=== PATIENT | male | born 1945 | race Hispanic/Latino ===

== ENCOUNTER 2017-07-04 09:18 | Day surgery (SDC) | payer MEDICARE ==
[2017-07-04] MEDS ORDERED: NACL 0.9% 1000 ML 1,000 ML ONE (10:22)
[2017-07-04] MEDS ORDERED: ANCEF/STERILE WATER 2 GM/20 ML IV NR (10:30)
[2017-07-04 10:35] LABS: Basophils % (Auto) 0.6 % (0.0-1.8); Eosinophils % (Auto) 2.6 % (0.0-4.3); Hematocrit 45.7 % (35.5-45.6); Hemoglobin 15.5 gm/dl (11.8-15.2); Mean Corpuscular HGB Conc 34 % (32-34); Mean Corpuscular Hemoglobin 32 pg (28-32); Mean Corpuscular Volume 94 fl (84-94); Platelet Count 137 K/mm3 (140-440); Red Blood Count 4.85 M/mm3 (3.65-5.03); Red Cell Distribution Width 13.1 % (13.2-15.2); White Blood Count 4.6 K/mm3 (4.5-11.0)
[2017-07-04] MEDS ORDERED: NACL 0.9% 1000 ML 1,000 ML IV SCH (10:35)
[2017-07-04 10:44] LABS: INR 0.93 (0.87-1.13)
[2017-07-04 10:55] LABS: Anion Gap 19 mmol/L; BUN/Creatinine Ratio 30; Blood Urea Nitrogen 18 mg/dL (9-20); Calcium 9.1 mg/dL (8.4-10.2); Carbon Dioxide 25 mmol/L (22-30); Chloride 100.7 mmol/L (98-107); Glucose 165 mg/dL (75-100); Sodium 141 mmol/L (137-145)
[2017-07-04] MEDS ORDERED: XYLOCAINE 1% 20 mL ONE (11:09)
[2017-07-04] MEDS ORDERED: MARCAINE 0.5% 30 ML INFILTRATI ONE (11:09)
--- NOTE | 2017-07-04 11:29 | Anesthesia Consultation ---
Anesthesia Consult and Med Hx Date of service: 07/04/17 - Airway Anesthetic Teeth Evaluation: Edentulous ROM Head & Neck: Adequate Mental/Hyoid Distance: Adequate Mallampati Class: Class II Intubation Access Assessment: Probably Good - Pulmonary Exam CTA: Yes - Cardiac Exam Cardiac Exam: RRR - Pre-Operative Health Status ASA Pre-Surgery Classification: ASA3 Proposed Anesthetic Plan: General - Pulmonary Hx Smoking: Yes (quit 03/22/14 - 2PPD x 44 years) Hx Sleep Apnea: Yes (has CPAP at home but doesn't use) - Cardiovascular System Hx Hypertension: Yes (20y) Hx Coronary Artery Disease: Yes (high cholesterol) Hx Peripheral Vascular Disease: Yes (L lower extremity 2 stents) - Central Nervous System Hx Back Pain: Yes Hx Psychiatric Problems: No - Endocrine Hx Insulin Dependent Diabetes: Yes - Other Systems Hx Alcohol Use: No Hx Substance Use: No Hx Cancer: No Hx Obesity: Yes (BMI 39.6) - Additional Comments Anesthesia Medical History Comments: cardiac clearance on chart. EF 50 %
[2017-07-04] MEDS ORDERED: LOPRESSOR PO ONE (11:30)
--- NOTE | 2017-07-04 11:30 | Anesthesia Day of Surgery ---
Anesthesia Day of Surgery - Day of Surgery Patient Examined: Yes Patient H&P Reviewed: Yes Patient is NPO: Yes
[2017-07-04] MEDS ORDERED: DIPRIVAN 10 MG/ML IV ONE (11:35)
[2017-07-04] MEDS ORDERED: XYLOCAINE MPF 2% ONE (11:35)
[2017-07-04] MEDS ORDERED: ZEMURON IV ONE (11:35)
[2017-07-04] MEDS ORDERED: DILAUDID ONE (11:35)
[2017-07-04] MEDS ORDERED: PEPCID IV NR (12:00)
[2017-07-04] MEDS ORDERED: ePHEDrine SULFATE ONE (12:19)
[2017-07-04] MEDS ORDERED: MARCAINE 0.25% INFILTRATI ONE (12:24)
[2017-07-04] MEDS ORDERED: XYLOCAINE 1% 20 mL INFILTRATI ONE (12:24)
[2017-07-04] MEDS ORDERED: NACL 0.9% IR ONE (12:24)
[2017-07-04] MEDS ORDERED: NEOSTIGMINE ONE (12:54)
[2017-07-04] MEDS ORDERED: ROBINUL ONE (12:54)
[2017-07-04] MEDS ORDERED: ZOFRAN ONE (12:54)
[2017-07-04] MEDS ORDERED: NEO SYNEPHRINE/NS Syringe(OR USE) IV ONE (13:00)
--- NOTE | 2017-07-04 13:08 | Operative Report ---
Operative Report Operative Report: Date of surgery: 07/04/17 Preoperative diagnosis: Reducible umbilical hernia Postoperative diagnosis: same as above Procedure: Open umbilical hernia repair with mesh Surgeon: Callum Molina DO Findings: 2 cm hernia defect Specimen: hernia sac EBL: <5cc Complications: None Patient disposition and condition: Stable to PACU HPI an indication: The patient is a 72y/o male who was seen in the office for an umbilical hernia. He was set up for an elective umbilical hernia repair. He was seen by Cardiology and cleared for surgery. All risks and benefits were discussed with the patient and the patient was in agreement to proceed to open hernia repair. Consent was signed and placed on chart. Procedure in detail: Patient was identified in the preoperative area and taken back to the operating room and placed on the operating room table in supine position. After anesthesia was induced the abdomen was prepped and draped in the usual sterile fashion. A timeout was performed. Local anesthetic was infiltrated at the intended incision site. A semi-lunar incision was made using a 15 blade below the umbilicus. The dissection was carried down through the skin and subcutaneous tissue using Bovie electrocautery. The hernia defect and sac was identified and circumferentially dissected free from the umbilicus and underlying fascia. The hernia sac was excised and contained preperitoneal fat which was easily reducible. The hernia defect measured approximately 2 cm. The preperitoneal space was developed bluntly and adhesions taken down using electrocautery. Hemostasis was ensured. A large 8cm Bard ventralex mesh was used to repair the defect and was sutured into place circumferentially using 2-0 Prolene suture. The wound was then irrigated and hemostasis achieved. The fascia was closed over the mesh using a pursetring 2-0 Vicryl stitch. Subcutaneous tissue was then irrigated and the deep dermal layer was closed with interrupted 3-0 Vicryl stitches. The skin was closed with 4-0 Monocryl subcuticular running stitch and skin glue. At the end of the case all sponge, instrument, and sharp counts were correct 2. The patient was awoken from anesthesia and extubated. The patient was taken to PACU in stable condition.
--- NOTE | 2017-07-04 13:23 | Short Stay Summary ---
Short Stay Documentation Date of service: 07/04/17 Narrative H&P: 72 yo M with umbilical hernia, seen in office and set up for elective repair. The patient underwent open umbilical hernia repair with mesh and post operative course was uncomplicated. He was discharged from the PACU once criteria was met. - History H&P: obtained from office - Allergies and Medications Current Medications: Allergies No Known Allergies Allergy (Verified 06/29/17 12:09) Home Medications Medication Instructions Recorded Confirmed Last Taken Type Aspirin [Aspirin BABY CHEW TAB] 81 mg PO QDAY 06/29/17 07/04/17 07/03/17 History Clopidogrel [Plavix] 75 mg PO QDAY 06/29/17 07/04/17 06/26/17 History Fenofibrate Nanocrystallized 160 mg PO DAILY 06/29/17 06/29/17 07/03/17 History [Fenofibrate] Insulin Degludec [Tresiba 50 units SQ QHS 06/29/17 06/29/17 07/03/17 21:30 History Flextouch U-100] Metoprolol [Lopressor TAB] 50 mg PO DAILY 06/29/17 07/04/17 07/03/17 10:00 History Ranitidine HCl [Acid Control] 150 mg PO DAILY 06/29/17 06/29/17 07/03/17 History Valsartan/Hydrochlorothiazide 1 each PO DAILY 06/29/17 06/29/17 07/03/17 History [Valsartan-Hctz 160-12.5 mg Tab] glipiZIDE [Glucotrol] 10 mg PO BID 06/29/17 06/29/17 07/03/17 History metFORMIN [Glucophage] 500 mg PO BID 06/29/17 06/29/17 07/03/17 History Active Medications Cefazolin Sodium (Ancef/Sterile Water 2 Gm/20 Ml) 2 gm IV PREOP NR Stop: 07/04/17 23:59 Famotidine (Pepcid) 20 mg IV PREOP NR Stop: 07/04/17 23:00 Sodium Chloride (Nacl 0.9% 1000 Ml) 1,000 mls @ 100 mls/hr IV DIRECT OLAMIDE Stop: 07/04/17 23:59 Last Admin: 07/04/17 10:40 Dose: 100 mls/hr - Physical exam General appearance: no acute distress HEENT: Atraumatic Heart: Regular rate Gastrointestinal: no tenderness, no distended Extremities: No edema - Brief post op/procedure progress note Date of procedure: 07/04/17 Pre-op diagnosis: reducible umbilical hernia Post-op diagnosis: same Procedure: open umbilical hernia repair with mesh Anesthesia: GETA Findings: 2cm hernia defect Surgeon: JERRY KEEN Estimated blood loss: minimal Pathology: list (hernia sac) Specimen disposition: to lab Condition: stable - Hospital course Hospital course: Patient was discharged from PACU in stable condition once criteria was met. - Disposition Condition at discharge: Stable Disposition: DC- TO HOME OR SELFCARE - Discharge Diagnoses (1) Umbilical hernia without obstruction and without gangrene Status: Acute Short Stay Discharge Plan Activity: other (NO heavy lifting >10 lbs for the next 4-6 weeks. No driving while taking narcotic pain medications.) Diet: regular Wound: open to air, other (May shower tomorrow, no baths/hottubs/pools until incision healed. Pat incision dry, do not scrub) Special Instructions: other (Resume plavix 07/05/17) Additional Instructions: Call surgeons office if fever>100.4, pus draining from or redness around incision Follow up with: KELLY ELIZABETH MD [Primary Care Provider] - 7 Days JERRY KEEN DO [Staff Physician] - 14 Days Prescriptions: oxyCODONE /ACETAMINOPHEN [Percocet 5/325] 1 tab PO Q6HR PRN #20 tablet PRN Reason: Pain
--- NOTE | 2017-07-04 13:27 | Post Anesthesia Evaluation ---
- Post Anesthesia Evaluation Patient Participated: Yes Airway Patent: Yes Stable Respiratory Function: Yes Nausea/Vomiting: No Temp > 96.8F: Yes Pain Manageable: Yes Adequeate Hydration: Yes Anesthesia Complications: No Block Receding Appropriately: Not Applicable Patient on Ventilator: No
[2017-07-04 14:50] VITALS: BP 100/57
== END 2017-07-04 15:18 | disposition home or self-care (01) ==
LOC: OR 09:18
PROVIDERS: ATTEND Surgery
DX: K42.9 Umbilical hernia without obstruction or gangrene (principal); G47.33 Obstructive sleep apnea (adult) (pediatric); I10 Essential (primary) hypertension; I25.10 Atherosclerotic heart disease of native coronary artery without angina pectoris; E11.51 Type 2 diabetes mellitus with diabetic peripheral angiopathy without gangrene; M19.90 Unspecified osteoarthritis, unspecified site; M47.9 Spondylosis, unspecified; E78.5 Hyperlipidemia, unspecified; E66.01 Morbid (severe) obesity due to excess calories; Z68.39 Body mass index [BMI] 39.0-39.9, adult; Z79.899 Other long term (current) drug therapy; Z79.01 Long term (current) use of anticoagulants; Z79.84 Long term (current) use of oral hypoglycemic drugs; Z79.82 Long term (current) use of aspirin; Z99.89 Dependence on other enabling machines and devices; Z87.891 Personal history of nicotine dependence; Z95.820 Peripheral vascular angioplasty status with implants and grafts; Z98.890 Other specified postprocedural states
CPT/HCPCS: 36415; 49585; 80048; 82962; 85025; 85610; 85730; 88302; C1781; J0690; J1170; J2405; J2704; J2710; J7030; J2370